=== PATIENT | male | born 1995 | race Caucasian/White ===

== ENCOUNTER 2022-05-31 16:07 | Emergency (ER) | payer BC, SELFPAY ==
[2022-05-31 16:29] VITALS: BP 124/80; PULSE 100; RESP 16; TEMP 36.1; O2SAT 98; BMI 37.1
[2022-05-31 17:21] LABS: PCR FLU A POSITIVE PCR FLU A (Negative); PCR FLU B Negative PCR FLU B (Negative); PCR RSV Negative PCR RSV (Negative)
[2022-05-31 17:30] LABS: SARS PCR* Negative SARS-CoV-2 (Negative)
--- NOTE | 2022-05-31 18:25 | ED.GENADULT ---
HPI - General Adult General Chief complaint: Cough Stated complaint: Possible Flu Time Seen by Provider: 05/31/22 17:59 Source: patient Mode of arrival: ambulatory Limitations: no limitations History of Present Illness HPI narrative: 27-year-old otherwise healthy male with history of childhood asthma presents to the emergency department for evaluation of cough, headache, body aches for the past 36 hours. Patient reports that his girlfriend in her entire family were diagnosed with influenza a a few days ago and he was exposed to them about 24 hours prior to onset of his illness. He denies any wheezing, no shortness of breath. He states that his mom urged him to come in because she was worried about COVID. He has not tried any Tylenol or ibuprofen to help with his symptoms, denies any significant shortness of breath. No nausea, no vomiting. He is taking fluids adequately. He is not immunosuppressed and does not take any prescription medications. He has no long-term health problems. Past medical history benign, no long-term health problems, no recent surgeries, no medications, no allergies. Socially is a nonsmoker with no unusual pertinent travel. Related Data Previous Rx's Medication Instructions Recorded oseltamivir 75 mg capsule (Tamiflu) 75 mg PO BID 5 days #9 caps 05/31/22 Allergies Allergy/AdvReac Type Severity Reaction Status Date / Time No Known Drug Allergies Allergy Verified 05/31/22 16:33 Review of Systems Narrative: Notable for the generalized, HEENT and respiratory symptoms as above, otherwise denies times 12 systems Exam Const: Vital Signs, click to edit/add: Vital Signs - 24 hr 05/31/22 16:29 Temperature 97 F L Pulse Rate [Pulse Oximeter] 100 Respiratory Rate 16 Blood Pressure [Ri ght Upper Arm] 124/80 Pulse Oximetry 98 Oxygen Delivery Me thod Room Air Documenting provider has reviewed patient's vital signs: yes Common normals: no apparent distress General appearance: cooperative HENMT: Common normals: normocephalic and TM's normal bilaterally Head and scalp: normocephalic Tympanic membrane: TM's normal bilaterally Mouth: oral and palatal mucosa normal Throat: posterior oropharynx normal Eye: Common normals: conjunctivae normal and no scleral icterus Conjunctiva: conjunctiva(e) normal Neck & C-Spine: Common normals: full ROM and no lymphadenopathy Resp: Common normals: normal respiratory effort, no use of accessory muscles and clear to auscultation bilaterally Effort & inspection: able to speak in complete sentences Auscultation: clear to auscultation bilaterally Cardio: Common normals: regular rate, regular rhythm, S1 normal heart sound, S2 normal heart sound, no murmurs and peripheral pulses 2+ throughout Rate: regular rate Rhythm: regular rhythm Heart sounds: S1 normal and S2 normal Peripheral pulses: pulses 2+ throughout Extremity: Common normals: normal to inspection and no pedal edema Psych: Insight: insight good Judgement: judgment good Skin: Common normals: no rashes or lesions noted General skin exam: no rashes or lesions noted Course Vital Signs Vital signs: Initial Vital Signs Temperature 97 F L 05/31/22 16:29 Temperature Source Temporal Artery Scan 05/31/22 16:29 Pulse Rate 100 05/31/22 16:29 Respiratory Rate 16 05/31/22 16:29 Blood Pressure 124/80 05/31/22 16:29 Blood Pressure Mean 94 05/31/22 16:29 Blood Pressure Position Sitting 05/31/22 16:29 Pulse Oximetry 98 05/31/22 16:29 Oxygen Delivery Method 05/31/22 16:29 Vital Signs Temperature 97 F L 05/31/22 16:29 Pulse Rate 100 05/31/22 16:29 Respiratory Rate 16 05/31/22 16:29 Blood Pressure 124/80 05/31/22 16:29 Pulse Oximetry 98 05/31/22 16:29 Oxygen Delivery Method 05/31/22 16:29 Temperature 97 F L 05/31/22 16:29 Pulse Rate 100 05/31/22 16:29 Respiratory Rate 16 05/31/22 16:29 Blood Pressure 124/80 05/31/22 16:29 Pulse Oximetry 98 05/31/22 16:29 Oxygen Delivery Method 05/31/22 16:29 Medical Decision Making MDM Narrative Medical decision making narrative: Discussed influenza A. No signs of sepsis, hypoxia, elevated respiratory rate or tachycardia. Do not recommend further workup. Because of his history of prior asthma, did offer Tamiflu which he accepts a. M prescribed for an additional 4 and half days as well. Discussed Tylenol and ibuprofen as needed for symptom management, he accepted offer for ibuprofen today also. Recommended that he be off work Wednesday and Wednesday and return to work Wednesday if feeling well enough to do so. Would be essentially non contagious after 24 hours on Tamiflu but 48 hours is better. Counseled patient will likely be ill for 7 days, typical guidance given, all questions answered Lab Data Lab results reviewed: Yes I reviewed the patient's lab results Labs: Lab Results 05/31/22 Range/Units 16:35 SARS-CoV-2 (PCR) Negative SARS-CoV-2 (Negative) Influenza Type A (PCR) POSITIVE PCR FLU A A (Negative) Influenza Type B (PCR) Negative PCR FLU B (Negative) RSV (PCR) Negative PCR RSV (Negative) Discharge Plan Discharge Clinical Impression: Influenza A Patient Disposition: Home, Self-Care Condition: Stable Instructions: Influenza (DC) Additional Instructions: As we discussed, your swab is positive for influenza A. Your symptoms also seem quite consistent with this. We have started you on medication called Tamiflu because of your history of asthma. Will need to sampler pickup the additional supply at your local pharmacy tomorrow morning. As we discussed, there are some intermittent shortage is of this medication. Continue using Tylenol and/or ibuprofen as needed to help with headache, fever, body aches and general symptoms. Continue to push fluids. I would like you off of work Wednesday and Wednesday while you recover from this illness but you will be sick a total of likely 7 days. Remember the symptoms that we discussed such as severe shortness of breath or severe weakness which would be reasons to come back to the emergency department. Activity Level: Activity as Tolerated Discharge Diet: Regular Prescriptions: New oseltamivir [Tamiflu] 75 mg capsule 75 mg PO BID 5 Days Qty: 9 0RF Stand Alone Forms: batter[employer] Info Instructions
[2022-05-31] MEDS: OSELTAMIVIR PHOSPHATE 75 MG CAPSULE PO (18:31)
[2022-05-31] MEDS: IBUPROFEN 200 MG TABLET 600 MG PO (18:31)
== END 2022-05-31 19:00 | disposition home or self-care (01) ==
LOC: ED 18:34
PROVIDERS: Emergency Provider Family Medicine
DX: J09.X2 Influenza due to identified novel influenza A virus with other respiratory manifestations (principal)
CPT/HCPCS: 87502; 87634; 87635; 99283; 99284; A9270